=== PATIENT | female | born 1930 | race Caucasian/White ===

== ENCOUNTER 2017-12-01 12:24 | Inpatient (IN) | payer MEDICARE ==
--- NOTE | 2017-12-01 15:40 | PDOC.EVN ---
Event Note - Event Note Event Note: pt is seen and examined in ER, order written and plan explained to pt, H & P will be dictated later for more details
--- NOTE | 2017-12-01 16:25 | RAD ---
CHEST ONE VIEW: HISTORY: An 87-year-old female with a history of congestive heart failure, cellulitis, and fluid overload. FINDINGS: Minimal cardiomegaly. Blunting of the costophrenic angle, suggesting small pleural effusions, with s ome mild bilateral vascular congestion. Atherosclerosis of the aorta. IMPRESSION: Minimal cardiomegaly with mild bilateral vascular congestion and probable small pleural effusions. N o confluent pneumonia. Possible mild interstitial edema. Continue short-term followup. POS: JARETT
[2017-12-01] MEDS ORDERED: Acetaminophen 325 MG TAB PO PRN (17:51)
[2017-12-01] MEDS ORDERED: Artificial Tears 18 DROP/0.9 ML EA EYE PRN (17:51)
[2017-12-01] MEDS ORDERED: Ondansetron HCl/PF 4 MG/2 ML Vial IVP PRN (17:51)
[2017-12-01] MEDS ORDERED: HumaLOG 300 UNITS/3 ML VIAL SC PRN (17:51)
[2017-12-01] MEDS ORDERED: Ondansetron ODT 4 MG TAB PO PRN (17:51)
[2017-12-01] MEDS ORDERED: VANCOMYCIN IVPB PRN (17:51)
[2017-12-01] MEDS ORDERED: Hydrocerin (Eucerin) Cream 120 gm Jar TOP PRN (17:51)
[2017-12-01] MEDS ORDERED: Milk Of Magnesia 30 ML UDCUP PO PRN (17:51)
[2017-12-01] MEDS ORDERED: hydrALAZINE 20 MG/ML VIAL SLOW IVP PRN (17:51)
[2017-12-01] MEDS ORDERED: Zolpidem Tartrate 5 MG TAB PO PRN (17:51)
[2017-12-01] MEDS ORDERED: Mag-Al 1200 mg/1200 mg/30 ML UDCUP PO PRN (17:51)
[2017-12-01] MEDS ORDERED: Dextrose 5% in Water 1,000 ML IV PRN (17:51)
[2017-12-01] MEDS ORDERED: HYDROcodone/Acetaminophen 5/325 mg Tablet PO PRN (17:51)
[2017-12-01] MEDS ORDERED: Senokot 8.6 MG TAB PO PRN (17:51)
[2017-12-01] MEDS ORDERED: Sodium Chloride 0.65% Nasal 44 ML BOT EA NARE PRN (17:51)
[2017-12-01] MEDS ORDERED: Chloraseptic Spray 180 ml Bottle PO PRN (17:51)
[2017-12-01] MEDS ORDERED: Nitroglycerin 0.4 MG TAB (25 Tab Bottle) SL PRN (17:51)
[2017-12-01] MEDS ORDERED: Loratadine 10 MG TAB PO PRN (17:51)
[2017-12-01] MEDS ORDERED: Dextrose 50% Abboject 50 ML SYRINGE SLOW IVP PRN (17:51)
[2017-12-01] MEDS ORDERED: Diabetic Tussin 200 MG/10 ML UDCUP PO PRN (17:51)
[2017-12-01] MEDS ORDERED: Loperamide HCl 2 MG CAP PO PRN (17:51)
[2017-12-01 18:42] LABS: CKMB 2.3 ng/mL (0-6.6); Troponin I 0.032 ng/mL (< 0.028)
[2017-12-01] MEDS ORDERED: metFORMIN 500 MG TAB PO SCH (19:45)
--- NOTE | 2017-12-01 20:05 | HP ---
PRIMARY CARE PHYSICIAN: Dr. Acevedo. REASON FOR ADMISSION: Transfer from [place] [facility] for right lower extremity cellulitis and congestive heart failure exacerbation. HISTORY OF PRESENT ILLNESS: An 87-year-old female who is living at the [facility]. The patient was sent to the [place] [facility] for worsening of her right lower extremity cellulitis and edema. Currently, the patient is accompanied by family member. Family member reports that she has a history of congestive heart failure and she is following Dr. Bell as an outpatient basis. The patient had injury over right lower extremity with some skin tear. Subsequently, the patient was having mild erythema. As per patient's family member, the patient had ultrasound done which was negative for any DVT and the patient was treated with SCDs at the skilled nursing. The patient' s edema was getting worse and erythema was getting worse and the patient was having a lot of pain in her right lower extremity and that is why family member was notified and the patient was sent to emergency room. The patient was also having increasing shortness of breath, increasing edema both lower extremities, but more on the right side. She does not have any orthopnea or PND. She denies any fever or chills. She denies any UTI symptoms. She denies any constipation, diarrhea, melena or hematochezia. The patient has underlying history of diabetes. The patient reported that there was no antibiotic prescription given for recent cellulitis. This patient was evaluated at local emergency room in [place] and she had ultrasound was done , which was negative for any DVT. The patient had a significantly elevated BNP. The patient was transferred to our emergency room for further evaluation and treatment. No family member reports that all record in our hospital system, but I could not find any more report regarding cardiac etiology, though patient is following Dr. Bell as an outpatient basis. ALLERGIES: No known drug allergy. CURRENT HOME MEDICATIONS: Robitussin 800 mg p.o. daily, digoxin 125 mcg p.o. daily, glimepiride 3 mg twice daily, metformin 1000 mg twice daily, magnesium oxide 400 mg p.o. b.i.d., Norvasc 5 mg p.o. daily, multivitamin 1 tablet p.o. daily, Lipitor 10 mg p.o. daily, Diovan 160 mg p.o. daily, Synthroid 50 mcg p.o. daily, Mobic 7.5 mg p.o. daily, Coreg 6.25 mg twice daily, Pro-Stat 30 mL p.o. daily, Tylenol p.r.n. basis, Zofran p.r.n. basis. PAST MEDICAL HISTORY: Congestive heart failure, paroxysmal atrial fibrillation , diabetes type 2, hypothyroidism, dyslipidemia, history of CVA with the right- sided weakness, dementia, and COPD. PAST SURGICAL HISTORY: Vein graft. PAST PSYCHIATRIC HISTORY: Anxiety and depression. SOCIAL HISTORY: The patient lives at [facility]. No history of tobacco, alcohol or illicit drug abuse. She has FULL CODE status. The patient's son is surrogate decision maker. FAMILY HISTORY: No strong family history of premature CAD, CVA or cancer. CODE STATUS: The patient is FULL CODE at the skilled nursing and the patient's son is surrogate decision maker. REVIEW OF SYSTEMS: The following complete review of systems was negative, unless otherwise mentioned in the HPI or below: Constitutional: Weight loss or gain, ability to conduct usual activities. Skin: Rash, itching. Eyes: Double vision, pain. ENT/Mouth: Nose bleeding, neck stiffness, pain, tenderness. Cardiovascular: Palpitations, dyspnea on exertion, orthopnea. Respiratory: Shortness of breath, wheezing, cough, hemoptysis, fever or night sweats. Gastrointestinal: Poor appetite, abdominal pain, heartburn, nausea, vomiting, constipation, or diarrhea. Genitourinary: Urgency, frequency, dysuria, nocturia. Musculoskeletal: Pain, swelling. Neurologic/Psychiatric: Anxiety, depression. Allergy/Immunologic: Skin rash, bleeding tendency. All review of systems reviewed with the patient and negative except as mentioned in the HPI. EMERGENCY ROOM COURSE: The patient was given IM 250 mL fluid and Rocephin 1 gram and [place] one tablet at [place] [facility]. PHYSICAL EXAMINATION: VITAL SIGNS: In our emergency room, blood pressure 168/65, pulse 66, respiratory rate 18, temperature 98.1, saturation 96% on 2 liters oxygen, weight 53.5 kilograms. GENERAL: The patient is currently alert, awake, hypertensive, no obvious acute distress. HEAD: Normocephalic, atraumatic. EYES: Pupils round, reactive to light. Extraocular muscle intact. ENT: Oropharynx within normal limits. Moist mucous membranes. No oral lesion , no pharyngeal erythema, no exudate. NECK: Supple, no JVD, no thyromegaly, no carotid bruit. LUNGS: Bibasilar rales noted. Air entry reduced. CARDIAC: S1, S2 appears regular. No gross murmur noted. No gallop. No rub. ABDOMEN: Soft, bowel sounds present, nontender, nondistended. No organomegaly , no mass, no suprapubic tenderness. BACK: Unremarkable, no CVA tenderness. EXTREMITIES: Upper extremity: Passive movements of all joints are normal. Lower extremities: Bilateral lower extremity pitting edema. Right lower extremity is erythematous, tender and swollen. The patient does have wound which is covered with a dressing. Good distal pulsation. SKIN: No skin rash other than cellulitis of right lower extremity. NEUROLOGIC: Grossly nonfocal examination. She moves all 4 limbs. Plantar bilateral flexor. SIGNIFICANT LABORATORY DATA: CBC: WBC 13.2, hemoglobin 11.2, platelet 270 with a left shift. BMP: Sodium 142, potassium 4.6, chloride 100, carbon dioxide 31, anion gap 16, BUN 77, creatinine 1.41, glucose 134, calcium 10.4. LFT: AST 26, ALT 29, alkaline phosphatase 102, albumin 3.9. BNP 2379, CK-MB 2.5, troponin I 0.018. Chest x-ray based on my review, cardiomegaly, mild pulmonary vascular congestion, mild interstitial edema. Ultrasound negative for DVT. ASSESSMENT AND PLAN: 1. Acute on chronic congestive heart failure suspecting systolic heart failure. We will obtain echocardiography for confirmation of systolic or diastolic heart failure. Meanwhile, we will continue with Lasix 40 mg IV b.i.d. , magnesium oxide 400 mg p.o. b.i.d. We will monitor daily weight and input and output chart, fluid restriction 1500 mL per day. We will also rule out acute coronary syndrome with serial cardiac enzymes. We will check digoxin level, magnesium level, uric acid tomorrow. We will monitor daily weight and input output chart. We will replace electrolytes as needed basis. We will monitor clinically on telemetry floor. 2. Right lower extremity cellulitis precipitated by recent skin tear. The patient has clinical evidence of cellulitis on the right lower extremity. The patient will be treated with Rocephin 2 gram IV daily and vancomycin to cover Staph infection. Vancomycin dose will be adjusted by pharmacy. We will give her probiotics, Florastor 250 mg p.o. daily. Her pain will be controlled with pain medication. The patient is advised to keep her lower extremities elevated. 3. Hypertension. As patient has a suspected systolic congestive heart failure , we will also continue Coreg 6.25 mg p.o. b.i.d., Diovan 160 mg p.o. daily along with amlodipine 5 mg p.o. daily and we will titrate blood pressure medication. 4. Dyslipidemia. Continue Lipitor 10 mg p.o. at bedtime. 5. History of atrial fibrillation. Continue digoxin 125 mcg p.o. daily along with aspirin 81 mg p.o. daily, Coreg 6.25 mg p.o. b.i.d. 6. Hypothyroidism. Continue Synthroid 650 mcg p.o. daily and check TSH tomorrow. 7. Diabetes type 2. We will continue glimepiride 2-3 mg twice daily, metformin 1000 mg p.o. b.i.d. along with insulin as per sliding scale per protocol. Diabetic diet will be given. 8. Chronic kidney disease stage 3. We will monitor renal function and avoid nephrotoxin agent. 9. Anemia, normocytic, normochromic, nutritional supplement will be given. 10. Deep venous thrombosis prophylaxis. Lovenox 40 mg subcu daily. 11. Gastrointestinal prophylaxis, Pepcid 20 mg p.o. b.i.d. CODE STATUS: Patient is FULL CODE. Patient's son is surrogate decision maker. Disposition plan based on clinical course. We are expecting patient's stay in hospital more than 2 midnights. Plan of care discussed with the patient and family member at bedside in the emergency room. VEENA
[2017-12-01] MEDS ORDERED: Vancomycin HCl 1 GM in Premix Bag 1 BAG IVPB SCH (21:00)
[2017-12-01] MEDS: Famotidine 20 MG TAB PO SCH (21:27)
[2017-12-01] MEDS: Atorvastatin Calcium 10 MG TAB PO SCH (21:27)
[2017-12-01] MEDS: Magnesium Oxide 400 MG TAB PO SCH (21:27)
[2017-12-01] MEDS: Carvedilol 6.25 MG TAB PO SCH (21:27)
[2017-12-01] MEDS: cefTRIAXone\\ROCEPHIN 2 GM in Sodium Chloride 0.9% 100 ML IVPB SCH (21:28)
[2017-12-01 21:51] LABS: CKMB 2.4 ng/mL (0-6.6); Troponin I 0.041 ng/mL (< 0.028)
[2017-12-02 05:05] LABS: #Basophils 0.1 thou/uL (0.0-0.2); #Eosinphils 0.2 thou/uL (0.0-0.7); #Lymphocytes 0.9 thou/uL (1.20-3.40); #Monocytes 1.1 thou/uL (0.11-0.59); #Neutrophils 8.2 thou/uL (1.40-6.50); %Basophils 0.5 % (0.0-1.0); %Eosinophils 2.3 % (0.0-10.0); %Lymphocytes 8.9 % (21.0-51.0); %Monocytes 10.1 % (0.0-10.0); %Neutrophils 78.1 % (42.0-75.0); Mean Corpuscular HGB CONC 32.9 g/dL (32.0-36.0); Mean Corpuscular Hemoglobin 29.7 pg (27.0-31.0); Mean Corpuscular Volume 90.1 fl (81.0-99.0); Mean Platelet Volume 9.4 fL (7.4-10.4); Platelet Count 215 thou/uL (130-400); RBC Distribution Width 14.9 % (11.5-14.5); Red Blood Cell (RBC) Count 3.38 mill/uL (4.20-5.40); White Blood Cell (WBC) Count 10.4 thou/uL (4.8-10.8)
[2017-12-02] MEDS: Levothyroxine Sodium 50 MCG TAB PO SCH (05:23)
[2017-12-02] MEDS: Furosemide 40 MG/4 ML VIAL SLOW IVP SCH ×2 (05:24→13:57)
[2017-12-02 05:46] LABS: ALT (SGPT) 23 U/L (8-55); AST (SGOT) 23 U/L (5-34); Albumin 3.4 g/dL (3.4-4.8); Alkaline Phosphatase 90 U/L (40-150); Anion Gap 13 mmol/L (10-20); BUN (Urea Nitrogen) 68 mg/dL (9.8-20.1); Bilirubin, Total 0.7 mg/dL (0.2-1.2); Calc. Creatinine Clearance 30 mL/min (70-130); Calcium 9.6 mg/dL (7.8-10.44); Carbon Dioxide 30 mmol/L (23-31); Chloride 103 mmol/L (98-107); Estimated GFR-MDRD 43; Globulin 3.4 g/dL (2.4-3.5); Glucose 61 mg/dL (83-110); Potassium 4.1 mmol/L (3.5-5.1); Protein, Total 6.8 g/dL (6.0-8.3); Sodium 142 mmol/L (136-145); Uric Acid 11.7 mg/dL (2.6-6.0)
[2017-12-02 06:11] LABS: Digoxin 1.31 ng/mL (0.8-2.0)
[2017-12-02 07:18] LABS: Bilirubin Negative (Negative); Blood, Urine Negative (Negative); Clarity CLOUDY (Clear); Glucose, Urine (Dipstick) Negative (Negative); Leukocyte Negative (Negative); Nitrite Negative (Negative); Protein, Urine (Dipstick) Negative (Neg-Trace); Specific Gravity, Urine 1.014 (1.002-1.036)
[2017-12-02 07:51] LABS: RBC/HPF 0-3 HPF (0-3); WBC/HPF 0-3 HPF (0-3)
[2017-12-02 07:52] LABS: Bacteria/HPF Rare-Few HPF (None Seen); Hyaline Casts/LPF 0-3 HYALINE CAST LPF (0-3 Hyaline); Renal Epithelial 0-3 HPF (0-3)
[2017-12-02] MEDS: Multivitamin W/ Minerals 1 TAB PO SCH (08:43)
[2017-12-02] MEDS: Saccharomyces boulardii 250 MG CAP PO SCH (08:43)
[2017-12-02] MEDS: Magnesium Oxide 400 MG TAB PO SCH ×2 (08:43→20:37)
[2017-12-02] MEDS: Digoxin 0.125 MG TAB PO SCH (08:43)
[2017-12-02] MEDS: Amlodipine 5 MG TAB PO SCH (08:44)
[2017-12-02] MEDS: Carvedilol 6.25 MG TAB PO SCH ×2 (08:44→20:38)
[2017-12-02] MEDS: Valsartan 80 MG TAB PO SCH (08:44)
[2017-12-02] MEDS: Enoxaparin Sodium 30 MG/0.3 ML SYRINGE SC SCH (08:45)
[2017-12-02] MEDS ORDERED: Prevnar 13-Val Conj/PF 0.5 ML SYRINGE IM ONE (09:00)
--- NOTE | 2017-12-02 09:40 | PDOC.PN ---
- Subjective Encounter Start Date: 12/02/17 Encounter Start Time: 09:38 Ms. Denise was seen today in follow-up of cellulitis of the leg. She does not have any complaints when asked, but admits to some dyspnea when she woke up this morning. she denies any pain in her leg. - Objective Resuscitation Status: Resuscitation Status FULL:Full Resuscitation MAR Reviewed: Yes Vital Signs & Weight: Vital Signs (12 hours) Temp Pulse Resp BP BP Pulse Ox 12/02/17 08:44 67 183/73 H 12/02/17 08:43 67 12/02/17 04:00 98.5 F 67 20 165/70 H 97 Weight Admit Weight 121 lb 8 oz Weight 124 lb Result Diagrams: 12/02/17 04:32 12/02/17 04:32 Additional Labs: Accuchecks 12/01/17 21:17 POC Glucose 111 H Phys Exam - Physical Examination HEENT: PERRLA, sclera anicteric Respiratory: no wheezing, no rales, no rhonchi, clear to auscultation bilateral Cardiovascular: RRR, no rub 3/6 systolic murmur Gastrointestinal: soft, non-tender, no distention, positive bowel sounds Musculoskeletal: edema present 2-3 + pitting edema, mild erythema in the left lower extremity, mild warmth Dx/Plan (1) Cellulitis of left leg Code(s): L03.116 - CELLULITIS OF LEFT LOWER LIMB Status: Acute (2) Acute on chronic diastolic heart failure Code(s): I50.33 - ACUTE ON CHRONIC DIASTOLIC (CONGESTIVE) HEART FAILURE Status : Acute (3) Diabetes mellitus type 2 in nonobese Code(s): E11.9 - TYPE 2 DIABETES MELLITUS WITHOUT COMPLICATIONS Status: Chronic (4) Hypertension Code(s): I10 - ESSENTIAL (PRIMARY) HYPERTENSION Status: Chronic (5) Hypothyroidism Code(s): E03.9 - HYPOTHYROIDISM, UNSPECIFIED Status: Chronic (6) CVA (cerebral vascular accident) Code(s): I63.9 - CEREBRAL INFARCTION, UNSPECIFIED Status: Chronic - Plan * Cellulitis- continue Rocephin and Vancomycin, and follow clinically * DM- blood glucose is stable * HTN- blood pressure is slightly elevated, but will monitor while she is being diuresed, may need to adjust medications if trend continues. * Hypothyroidism- stable * Acute on chronic diastolic heart failure- continue Lasix IV- await Echo to assess LV function- monitor electrolytes
[2017-12-02] MEDS: metFORMIN 500 MG TAB PO SCH ×2 (10:26→17:34)
[2017-12-02] MEDS: Glimepiride 1 MG TAB PO SCH ×2 (10:27→17:33)
--- NOTE | 2017-12-02 13:44 | PQF ---
CLINICAL DOCUMENTATION IMPROVEMENT CLARIFICATION FORM: ICD-10 Updated PLEASE DO AN ADDENDUM TO THE PROGRESS NOTE WITH ANY DOCUMENTATION UPDATES OR ADDITIONS AND CARRY THROUGH TO DC SUMMARY. THANK YOU. DATE: 12/02 ATTN: DR. FRANTZ LOPEZ Please exercise your independent, professional judgment in responding to the clarification form. Clinical indicators are provided on the bottom of this form for your review Please check appropriate box(s): ____X___ I (concur) with the Wound Care findings as stated below. [ ] Pressure Ulcer: (Stage I: Erythema; Stage II: Partial thickness; Stage III : Full thickness; Stage IV: Necrosis to muscle/bone) [ ] Location: POA: [ ] Yes [ ] No [ ] Unable to determine Stage (I to IV): (Left Right Bilateral N/A ) [ ] Location: POA: [ ] Yes [ ] No [ ] Unable to determine Stage (I to IV): (Left Right Bilateral N/A ) [ ] Other diagnosis [ ] Unable to determine In addition, please specify: Present on Admission (POA): [X ] Yes [ ] No [ ] Unable to determine For continuity of documentation, please document condition throughout progress notes and discharge summary. Thank You. CLINICAL INDICATORS - SIGNS / SYMPTOMS / LABS WOUND CARE CONSULT DOCUMENTATION 12/02: RIGHT CALF PRESSURE ULCER STAGE III RISK FACTORS: CELLULITIS RLE DM II R HEMIPLEGIA TREATMENTS: WOUND CARE CONSULT W/TREATMENT EVERY 3RD DAY THANK YOU! Nelda (This form is maintained as a part of the permanent medical record) 2014 [employer] All Rights Reserved Nelda Santana RN, BSN [email or web address] Office: [phone] [facility]
[2017-12-02] MEDS: Atorvastatin Calcium 10 MG TAB PO SCH (20:38)
[2017-12-02] MEDS: Famotidine 20 MG TAB PO SCH (20:38)
[2017-12-02] MEDS: cefTRIAXone\\ROCEPHIN 2 GM in Sodium Chloride 0.9% 100 ML IVPB SCH (20:38)
[2017-12-02 21:35] LABS: Vancomycin, Random 15.5 ug/mL (See Comment)
[2017-12-03] MEDS: Carvedilol 6.25 MG TAB PO SCH (03:47)
[2017-12-03 05:58] LABS: #Basophils 0.1 thou/uL (0.0-0.2); #Eosinphils 0.1 thou/uL (0.0-0.7); #Lymphocytes 1.1 thou/uL (1.20-3.40); #Monocytes 1.3 thou/uL (0.11-0.59); #Neutrophils 10.1 thou/uL (1.40-6.50); %Basophils 0.4 % (0.0-1.0); %Eosinophils 0.9 % (0.0-10.0); %Lymphocytes 8.5 % (21.0-51.0); %Monocytes 10.4 % (0.0-10.0); %Neutrophils 79.7 % (42.0-75.0); Hemoglobin 10.7 g/dL (12.0-16.0); Mean Corpuscular Hemoglobin 28.4 pg (27.0-31.0); Mean Corpuscular Volume 88.7 fl (81.0-99.0); Platelet Count 273 thou/uL (130-400); RBC Distribution Width 15.1 % (11.5-14.5); Red Blood Cell (RBC) Count 3.77 mill/uL (4.20-5.40); White Blood Cell (WBC) Count 12.7 thou/uL (4.8-10.8)
[2017-12-03] MEDS: Furosemide 40 MG/4 ML VIAL SLOW IVP SCH ×2 (06:00→14:54)
[2017-12-03] MEDS ORDERED: Vancomycin HCl 500 MG in Sodium Chloride 0.9% 100 ML IVPB SCH (06:00)
[2017-12-03] MEDS: Levothyroxine Sodium 50 MCG TAB PO SCH (06:00)
[2017-12-03 06:27] LABS: Anion Gap 16 mmol/L (10-20); BUN (Urea Nitrogen) 57 mg/dL (9.8-20.1); Calc. Creatinine Clearance 27 mL/min (70-130); Calcium 9.3 mg/dL (7.8-10.44); Carbon Dioxide 28 mmol/L (23-31); Chloride 101 mmol/L (98-107); Estimated GFR-MDRD 38; Glucose 88 mg/dL (83-110); Sodium 141 mmol/L (136-145)
[2017-12-03] MEDS: Glimepiride 1 MG TAB PO SCH ×2 (08:45→17:17)
[2017-12-03] MEDS: metFORMIN 500 MG TAB PO SCH (08:46)
[2017-12-03] MEDS: Digoxin 0.125 MG TAB PO SCH (08:46)
[2017-12-03] MEDS: Enoxaparin Sodium 30 MG/0.3 ML SYRINGE SC SCH (08:46)
[2017-12-03] MEDS: Valsartan 80 MG TAB PO SCH (08:46)
[2017-12-03] MEDS: Multivitamin W/ Minerals 1 TAB PO SCH (08:47)
[2017-12-03] MEDS: Amlodipine 5 MG TAB PO SCH (08:47)
[2017-12-03] MEDS: Magnesium Oxide 400 MG TAB PO SCH ×2 (08:47→21:23)
[2017-12-03] MEDS: Saccharomyces boulardii 250 MG CAP PO SCH (08:47)
[2017-12-03] MEDS ORDERED: Carvedilol 6.25 MG TAB PO SCH (09:00)
--- NOTE | 2017-12-03 09:43 | PDOC.PN ---
- Subjective Encounter Start Date: 12/03/17 Encounter Start Time: 09:42 Ms. Denise was seen today in follow-up of cellulitis, and CHF exacerbation. She does not have any complaints. She denies leg pain, and denies feeling short of breath. - Objective Resuscitation Status: Resuscitation Status FULL:Full Resuscitation MAR Reviewed: Yes Vital Signs & Weight: Vital Signs (12 hours) Temp Pulse Resp BP BP BP Pulse Ox 12/03/17 08:47 75 179/78 H 12/03/17 08:46 75 12/03/17 07:20 98.5 F 69 16 179/78 H 93 L 12/03/17 04:00 97.5 F L 55 L 18 140/63 93 L 12/03/17 03:47 163/70 H 12/03/17 00:00 97.9 F 65 18 132/68 93 L Weight Admit Weight 121 lb 8 oz Weight 119 lb 11.2 oz I&O: 12/02/17 12/03/17 12/04/17 06:59 06:59 06:59 Intake Total 400 Output Total 400 Balance 0 Result Diagrams: 12/03/17 05:23 12/03/17 05:23 Additional Labs: Accuchecks 12/03/17 12/02/17 12/02/17 05:44 21:17 16:39 POC Glucose 90 156 H 186 H 12/02/17 12/02/17 13:57 06:25 POC Glucose 130 H 72 Phys Exam - Physical Examination HEENT: PERRLA Respiratory: no wheezing, no rales, no rhonchi, clear to auscultation bilateral Cardiovascular: RRR 2/6 systolic murmur Gastrointestinal: soft, non-tender, no distention, positive bowel sounds Musculoskeletal: edema present 2+ pitting edema bilaterally with left> right + erythema mildly improved from yesterday Neurological: non-focal Dx/Plan (1) Cellulitis of left leg Code(s): L03.116 - CELLULITIS OF LEFT LOWER LIMB Status: Acute (2) Acute on chronic diastolic heart failure Code(s): I50.33 - ACUTE ON CHRONIC DIASTOLIC (CONGESTIVE) HEART FAILURE Status : Acute (3) Diabetes mellitus type 2 in nonobese Code(s): E11.9 - TYPE 2 DIABETES MELLITUS WITHOUT COMPLICATIONS Status: Chronic (4) Hypertension Code(s): I10 - ESSENTIAL (PRIMARY) HYPERTENSION Status: Chronic (5) Hypothyroidism Code(s): E03.9 - HYPOTHYROIDISM, UNSPECIFIED Status: Chronic (6) CVA (cerebral vascular accident) Code(s): I63.9 - CEREBRAL INFARCTION, UNSPECIFIED Status: Chronic (7) Chronic kidney disease, stage 3 (moderate) Code(s): N18.3 - CHRONIC KIDNEY DISEASE, STAGE 3 (MODERATE) Status: Acute - Plan * Cellulitis of the Left Leg- will continue Rocephin IV clinically it is improved * Acute on chronic heart failure- continue Lasix IV- will add Hydralazine for better BP control * Still awaiting Echo to assess LV function * DM- blood glucose is stable- will discontinue Metformin as her GFR is too low for this medication * HTN- again will add Hydralazine. * Monitor electrolytes and renal function
[2017-12-03] MEDS: hydrALAZINE 25 MG TAB PO SCH ×2 (14:54→21:23)
[2017-12-03] MEDS: cefTRIAXone\\ROCEPHIN 2 GM in Sodium Chloride 0.9% 100 ML IVPB SCH (21:22)
[2017-12-03] MEDS: Atorvastatin Calcium 10 MG TAB PO SCH (21:23)
[2017-12-03] MEDS: Famotidine 20 MG TAB PO SCH (21:24)
[2017-12-04] MEDS: Levothyroxine Sodium 50 MCG TAB PO SCH (05:27)
[2017-12-04] MEDS: Furosemide 40 MG/4 ML VIAL SLOW IVP SCH ×2 (05:27→14:02)
[2017-12-04 05:40] LABS: #Eosinphils 0.3 thou/uL (0.0-0.7); #Lymphocytes 1.2 thou/uL (1.20-3.40); #Monocytes 1.3 thou/uL (0.11-0.59); #Neutrophils 9.5 thou/uL (1.40-6.50); %Basophils 0.4 % (0.0-1.0); %Eosinophils 2.6 % (0.0-10.0); %Lymphocytes 9.6 % (21.0-51.0); %Monocytes 10.6 % (0.0-10.0); %Neutrophils 76.8 % (42.0-75.0); Hemoglobin 10.3 g/dL (12.0-16.0); Mean Corpuscular HGB CONC 32.5 g/dL (32.0-36.0); Mean Corpuscular Hemoglobin 28.8 pg (27.0-31.0); Mean Corpuscular Volume 88.7 fl (81.0-99.0); Mean Platelet Volume 8.4 fL (7.4-10.4); Platelet Count 267 thou/uL (130-400); RBC Distribution Width 15.3 % (11.5-14.5); Red Blood Cell (RBC) Count 3.59 mill/uL (4.20-5.40); White Blood Cell (WBC) Count 12.4 thou/uL (4.8-10.8)
[2017-12-04 05:50] LABS: Anion Gap 14 mmol/L (10-20); BUN (Urea Nitrogen) 50 mg/dL (9.8-20.1); Calc. Creatinine Clearance 28 mL/min (70-130); Calcium 9.3 mg/dL (7.8-10.44); Carbon Dioxide 33 mmol/L (23-31); Chloride 103 mmol/L (98-107); Estimated GFR-MDRD 41; Glucose 64 mg/dL (83-110); Potassium 3.6 mmol/L (3.5-5.1); Sodium 146 mmol/L (136-145); Vancomycin, Random 11.6 ug/mL (See Comment)
[2017-12-04] MEDS ORDERED: Vancomycin HCl 500 MG in Sodium Chloride 0.9% 100 ML IVPB SCH (07:00)
[2017-12-04] MEDS: Glimepiride 1 MG TAB PO SCH ×2 (08:20→16:49)
[2017-12-04] MEDS: Enoxaparin Sodium 30 MG/0.3 ML SYRINGE SC SCH (08:21)
[2017-12-04] MEDS: hydrALAZINE 25 MG TAB PO SCH ×3 (08:21→20:28)
[2017-12-04] MEDS: Multivitamin W/ Minerals 1 TAB PO SCH (08:21)
[2017-12-04] MEDS: Valsartan 80 MG TAB PO SCH (08:21)
[2017-12-04] MEDS: Digoxin 0.125 MG TAB PO SCH (08:21)
[2017-12-04] MEDS: Amlodipine 5 MG TAB PO SCH (08:21)
[2017-12-04] MEDS: Saccharomyces boulardii 250 MG CAP PO SCH (08:21)
[2017-12-04] MEDS: Magnesium Oxide 400 MG TAB PO SCH ×2 (08:21→20:28)
--- NOTE | 2017-12-04 11:10 | PDOC.PN ---
- Subjective Encounter Start Date: 12/04/17 Encounter Start Time: 11:08 Ms. Denise was seen today in follow-up. She does not have any complaints. She denies chest pain or difficulty breathing - Objective Resuscitation Status: Resuscitation Status FULL:Full Resuscitation MAR Reviewed: Yes Vital Signs & Weight: Vital Signs (12 hours) Temp Pulse Resp BP BP BP Pulse Ox 12/04/17 08:21 64 12/04/17 08:00 98.4 F 64 18 96 12/04/17 07:47 98.4 F 64 18 147/69 H 96 12/04/17 04:22 98.9 F 54 L 18 152/67 H 93 L 12/04/17 00:26 97.9 F 69 131/70 93 L Weight Admit Weight 121 lb 8 oz Weight 120 lb 8 oz I&O: 12/03/17 12/04/17 12/05/17 06:59 06:59 06:59 Intake Total 400 300 Output Total 400 Balance 0 300 Result Diagrams: 12/04/17 05:17 12/04/17 05:17 Additional Labs: Accuchecks 12/04/17 12/03/17 12/03/17 05:50 21:19 16:03 POC Glucose 74 182 H 69 L 12/03/17 10:53 POC Glucose 86 Phys Exam - Physical Examination HEENT: PERRLA Respiratory: no wheezing, no rales, no rhonchi, clear to auscultation bilateral Cardiovascular: RRR, no significant murmur, no rub Gastrointestinal: soft, non-tender, positive bowel sounds Musculoskeletal: edema present + Lower extremity edema has improved, erythema, also has improved, but is still present, mild warmth Dx/Plan (1) Aortic stenosis, severe Code(s): I35.0 - NONRHEUMATIC AORTIC (VALVE) STENOSIS Status: Acute (2) Cellulitis of left leg Code(s): L03.116 - CELLULITIS OF LEFT LOWER LIMB Status: Acute (3) Acute on chronic diastolic heart failure Code(s): I50.33 - ACUTE ON CHRONIC DIASTOLIC (CONGESTIVE) HEART FAILURE Status : Acute (4) Diabetes mellitus type 2 in nonobese Code(s): E11.9 - TYPE 2 DIABETES MELLITUS WITHOUT COMPLICATIONS Status: Chronic (5) Hypertension Code(s): I10 - ESSENTIAL (PRIMARY) HYPERTENSION Status: Chronic (6) Hypothyroidism Code(s): E03.9 - HYPOTHYROIDISM, UNSPECIFIED Status: Chronic (7) CVA (cerebral vascular accident) Code(s): I63.9 - CEREBRAL INFARCTION, UNSPECIFIED Status: Chronic (8) Chronic kidney disease, stage 3 (moderate) Code(s): N18.3 - CHRONIC KIDNEY DISEASE, STAGE 3 (MODERATE) Status: Acute (9) Pulmonary hypertension Code(s): I27.20 - PULMONARY HYPERTENSION, UNSPECIFIED Status: Acute - 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 I spoke with Dr. Acevedo to clarify why she is not on anticoagulation. She was taken off coumadin to have a dental procedure. She had a significant amount of bleeding following that dental procedure once coumadin was re-started. She asked to be taken off. She was afraid to re-start coumadin thereafter, as well as her family, and has refused to take it since. ( Therefor Patient Preference) * Cellulitis- clinically improving with Rocephin * HTN- blood pressure has been stable * DM- blood glucose is stable
--- NOTE | 2017-12-04 13:32 | CON ---
DATE OF CONSULTATION: 12/04/2017 INDICATION FOR CONSULTATION: An 87-year-old female who was admitted with right lower extremity cellu litis and edema. The patient was found by echocardiogram to have diastolic dysfunction, diastolic he art failure as well as severe aortic valve stenosis and severe pulmonary hypertension. We were asked to see her due to various cardiac problems. At this time, the patient has obviously some dementia. She does answer some questions appropriately, but I am uncertain as if she has a full understanding of her overall medical problems. She denies a ny chest pain or shortness of breath and mainly says that her leg was swollen and that she had some d iscomfort in the leg with the cellulitis. PAST MEDICAL HISTORY: Significant for paroxysmal atrial fibrillation. She has anxiety, depression, history of diabetes, history of hypertension, dyslipidemia, hypothyroidism, type 2 diabetes, chronic kidney disease. She has history of anemia. She has had a CVA in the past, has right hemiparesis. S he has obvious dementia. She has had a history of what appears to be some type of peripheral vascula r disease involving the right lower extremity. She may have had some type of bypass grafting. There is an incision on the right medial aspect of the lower leg. Otherwise, I do not know any other sign ificant past medical history. SOCIAL HISTORY: She resides in a [facility]. She has no alcohol or tobacco abuse. FAMILY HISTORY: Noncontributory at her age. ALLERGIES: There are no known drug allergies. MEDICATIONS PRIOR TO ADMISSION: Included Tylenol, Zofran, Pro-Stat, Coreg, Mobic, Synthroid, Diovan, atorvastatin, multivitamins, Norvasc, magnesium, metformin, glimepiride, digoxin and guaifenesin. REVIEW OF SYSTEMS: Difficult to obtain, but she denied any GI or complaints. She had no nausea, vomiting or diarrhea. She had no complaints from a pulmonary standpoint. She denied shortness of br eath or dyspnea on exertion. She also denied any significant cardiac complaints such as chest pain o r palpitations, dizziness or lightheadedness. She mainly complains of the pain and discomfort in the right lower extremity. PHYSICAL EXAMINATION: GENERAL: Reveals an elderly female. Obviously she has some dementia. VITAL SIGNS: Blood pressure 145/63, heart rate is 71 and irregular. She is afebrile, respiratory ra te 16. HEENT: Reveals the head to be normocephalic and atraumatic. Carotid pulses are present. There is r adiation from the aortic area up into the carotids. I cannot tell if there are any significant carot id bruits. LUNGS: Chest is clear to auscultation. I did not hear any rales, rhonchi or wheezing, but there jorgensen s appear to be decreased breath sounds on the right side, but otherwise there were no rales or rhonch i. There was no wheezing. CARDIOVASCULAR: Reveals an irregular rhythm. She has a harsh systolic murmur in the aortic area whi ch radiates over the entire precordium. There is also a systolic murmur noted at the apex, but this is overshadowed by the significant aortic valve stenosis murmur. ABDOMEN: Soft and nontender. Positive bowel sounds are present. EXTREMITIES: Showed no clubbing or cyanosis. She does have right lower extremity edema. I cannot p alpate the right popliteal pulse, or pedal pulses, I could barely palpate a right femoral pulse. The re appears to be well healed surgical incision around the knee area in the medial aspect of the right lower extremity. The right foot and leg is wrapped in a Kerlix a surgical dressing. SKIN: Warm and dry. NEUROLOGIC: The patient has obvious dementia. EKG shows atrial fibrillation. She occasionally has some significant pauses. Last night she had a 3 .8 second pause associated with atrial fibrillation. She has had no significant tachycardia. She martinez s had other pauses, 2.6 seconds, 3.4 seconds as well as a 3.8 second pause that she had suffered last night. LABORATORY DATA: Shows a BUN of 50 with a creatinine of 1.24, hemoglobin 10.3, WBC of 12.4, blood [place] was 64. There was no evidence of any cardiac enzymes obtained. Her chest x-ray did show evidence of some congestion and also question of small pleural effusions. N o evidence of pneumonia. IMPRESSION: 1. An 87-year-old female with acute on chronic diastolic congestive heart failure which is most like ly exacerbated by her severe aortic valve stenosis as well as pulmonary hypertension. This is a diff icult situation in this 87-year-old female with dementia. It is possible she could undergo a percuta neous aortic valve replacement if so indicated, but this would require also cardiac catheterization a nd may need to undergo if she has coronary artery disease, this would entail further evaluation and p ossible stent placement or bypass surgery. We will discuss this with the family. 2. History of atrial fibrillation with bradycardia. This may be an indication for a pacemaker. She had been on blood thinners in the past, but these were stopped and she is no longer taking medicatio ns. I am uncertain as to whether or not she has suffered a CVA in the past due to atrial fibrillatio n and not taking medications. This will also be left up to the discussion with the family as to whet her or not they wish to proceed with aggressive treatment such as pacemaker insertion and possible ao rtic valve replacement. This makes it again a difficult situation in this lady with what appears to be severe pulmonary hypertension also. 3. Paroxysmal atrial fibrillation, the rate is under good control and actually is bradycardic at ranjit es. She had been on a beta madelaine. We will hold the beta madelaine at this time, perhaps and decide whether or not to use other medications for control of the rhythm, possibly digoxin. However, she do es have chronic kidney disease. This would have to be monitored very carefully. We may be able to t andrew Cornell, may be able to try diltiazem to see if we can control the rate should she become tachycar dic. 4. Diabetes. This will be dealt with by the primary care service. 5. Chronic kidney disease. This also will be dealt with by the primary care service. 6. Chronic anemia. She is stable at this time. We will continue the present medications. 7. History of cerebrovascular accident in the past which most likely was associated with atrial fibr illation. 8. Hypertension. This is under good control at this time, would continue the medicines except we ma y need to discontinue the Coreg and start another medication in order to avoid bradycardia. 9. Peripheral vascular disease. I did not palpate pulses in the right lower extremity. This may be in part the reason that she has had poor healing. 10. Cellulitis of the right lower extremity. This [facility]. We will be more than happy to continue to follow the patient with you; however, will need to have sig nificant discussion with the family as to how they wish to proceed and whether or not to use aggressi ve management or not. If so, then the patient will need to undergo cardiac catheterization for furth er evaluation of the coronary artery status as well as true gradient across the aortic valve and poss ibly also pacemaker insertion.
[2017-12-04 14:04] LABS: Digoxin 1.62 ng/mL (0.8-2.0)
[2017-12-04 14:12] VITALS: BMI 22.7
[2017-12-04] MEDS: cefTRIAXone\\ROCEPHIN 2 GM in Sodium Chloride 0.9% 100 ML IVPB SCH (20:27)
[2017-12-04] MEDS: Atorvastatin Calcium 10 MG TAB PO SCH (20:28)
[2017-12-04] MEDS: Famotidine 20 MG TAB PO SCH (20:28)
[2017-12-05] MEDS: Vancomycin HCl 750 MG in Sodium Chloride 0.9% 250 ML 250 ML IVPB SCH (05:37)
[2017-12-05] MEDS: Levothyroxine Sodium 50 MCG TAB PO SCH (05:37)
[2017-12-05] MEDS: Furosemide 40 MG/4 ML VIAL SLOW IVP SCH ×2 (05:37→14:03)
[2017-12-05] MEDS: hydrALAZINE 25 MG TAB PO SCH ×3 (08:47→20:38)
[2017-12-05] MEDS: Amlodipine 5 MG TAB PO SCH (08:47)
[2017-12-05] MEDS: Magnesium Oxide 400 MG TAB PO SCH ×2 (08:47→20:38)
[2017-12-05] MEDS: Multivitamin W/ Minerals 1 TAB PO SCH (08:47)
[2017-12-05] MEDS: Valsartan 80 MG TAB PO SCH (08:47)
[2017-12-05] MEDS: Saccharomyces boulardii 250 MG CAP PO SCH (08:47)
[2017-12-05] MEDS: Glimepiride 1 MG TAB PO SCH ×2 (08:48→17:18)
[2017-12-05] MEDS: Enoxaparin Sodium 30 MG/0.3 ML SYRINGE SC SCH (08:48)
--- NOTE | 2017-12-05 12:12 | PDOC.PN ---
- Subjective Encounter Start Date: 12/05/17 Encounter Start Time: 12:10 Ms. Denise was seen today in follow-up. She does not have any complaints this morning. She denies leg pain, and has notes that the swelling has improved. - Objective Resuscitation Status: Resuscitation Status FULL:Full Resuscitation MAR Reviewed: Yes Vital Signs & Weight: Vital Signs (12 hours) Temp Pulse Pulse Pulse Resp BP BP 12/05/17 11:12 89 80 194/80 H 175/73 H 12/05/17 08:21 98.1 F 83 17 12/05/17 08:00 98.1 F 83 17 12/05/17 04:00 98.6 F 60 16 BP Pulse Ox 12/05/17 11:12 12/05/17 08:21 174/76 H 92 L 12/05/17 08:00 12/05/17 04:00 138/61 93 L Weight Admit Weight 121 lb 8 oz Weight 112 lb 12.8 oz I&O: 12/04/17 12/05/17 12/06/17 06:59 06:59 06:59 Intake Total 300 1720 Balance 300 1720 Result Diagrams: 12/04/17 05:17 12/04/17 05:17 Additional Labs: Accuchecks 12/05/17 12/05/17 12/04/17 11:42 06:27 20:43 POC Glucose 239 H 220 H 78 12/04/17 12/04/17 16:21 12:03 POC Glucose 80 81 Phys Exam - Physical Examination HEENT: PERRLA Respiratory: no wheezing, no rales, no rhonchi, clear to auscultation bilateral Cardiovascular: RRR, no significant murmur, no rub Gastrointestinal: soft, non-tender, positive bowel sounds Trace edema bilaterally, mild erythema, in the right leg, but improved Dx/Plan (1) Aortic stenosis, severe Code(s): I35.0 - NONRHEUMATIC AORTIC (VALVE) STENOSIS Status: Acute (2) Cellulitis of left leg Code(s): L03.116 - CELLULITIS OF LEFT LOWER LIMB Status: Acute (3) Acute on chronic diastolic heart failure Code(s): I50.33 - ACUTE ON CHRONIC DIASTOLIC (CONGESTIVE) HEART FAILURE Status : Acute (4) Diabetes mellitus type 2 in nonobese Code(s): E11.9 - TYPE 2 DIABETES MELLITUS WITHOUT COMPLICATIONS Status: Chronic (5) Hypertension Code(s): I10 - ESSENTIAL (PRIMARY) HYPERTENSION Status: Chronic (6) Hypothyroidism Code(s): E03.9 - HYPOTHYROIDISM, UNSPECIFIED Status: Chronic (7) CVA (cerebral vascular accident) Code(s): I63.9 - CEREBRAL INFARCTION, UNSPECIFIED Status: Chronic (8) Chronic kidney disease, stage 3 (moderate) Code(s): N18.3 - CHRONIC KIDNEY DISEASE, STAGE 3 (MODERATE) Status: Acute (9) Pulmonary hypertension Code(s): I27.20 - PULMONARY HYPERTENSION, UNSPECIFIED Status: Acute - Plan * Critical - Cardiology input appreciated- discussed with the patient son, and [id number] who are at bedside regarding this. Her filwbpjb-ms-fis tells me that when looking back she may have been symptomatic from the before now, she recalls that the patient had a fainting episode before. They have also discussed this with Dr. Acevedo. They are leaning towards conservative measures with regards to her treatment. They are not interested in a lot of invasive testing, and they tell me that before the patient's dementia had become advanced she had said she wanted to be DNR, and probably would not want a lot of aggressive treatment as well. They may have more questions regarding the pace-maker however. ( discussion lasted 20 minutes) * I have offered to have them speak with the Palliative care team, and they are interested in this * Cellulitis- improving- can likely change to oral antibiotics soon * AFIB-- she has been bradycardic periodically- will defer to Cardiology- will continue without full anticoagulation . * DM- blood glucose is slightly elevated- will monitor * HTN- blood pressure- will await further recommendations from Cardiology before adjusting medications
[2017-12-05] MEDS: HumaLOG 300 UNITS/3 ML VIAL SC PRN (12:58)
[2017-12-05] MEDS: cefTRIAXone\\ROCEPHIN 2 GM in Sodium Chloride 0.9% 100 ML IVPB SCH (20:37)
[2017-12-05] MEDS: Atorvastatin Calcium 10 MG TAB PO SCH (20:38)
[2017-12-05] MEDS: Famotidine 20 MG TAB PO SCH (20:38)
[2017-12-06] MEDS: Levothyroxine Sodium 50 MCG TAB PO SCH (05:06)
[2017-12-06] MEDS: Furosemide 40 MG/4 ML VIAL SLOW IVP SCH ×2 (05:06→14:40)
[2017-12-06] MEDS: Vancomycin HCl 750 MG in Sodium Chloride 0.9% 250 ML 250 ML IVPB SCH (05:06)
[2017-12-06] MEDS: Enoxaparin Sodium 30 MG/0.3 ML SYRINGE SC SCH (08:52)
[2017-12-06] MEDS: Amlodipine 5 MG TAB PO SCH (08:52)
[2017-12-06] MEDS: hydrALAZINE 25 MG TAB PO SCH ×2 (08:52→14:40)
[2017-12-06] MEDS: Valsartan 80 MG TAB PO SCH (08:53)
[2017-12-06] MEDS: Saccharomyces boulardii 250 MG CAP PO SCH (08:53)
[2017-12-06] MEDS: Magnesium Oxide 400 MG TAB PO SCH (08:53)
[2017-12-06] MEDS: Multivitamin W/ Minerals 1 TAB PO SCH (08:53)
[2017-12-06] MEDS: Glimepiride 1 MG TAB PO SCH ×2 (11:41→16:49)
--- NOTE | 2017-12-06 12:09 | PDOC.PN ---
- Subjective Encounter Start Date: 12/06/17 Encounter Start Time: 12:07 Ms. Denise was seen today in follow-up. she does not have any new complaints. - Objective Resuscitation Status: Resuscitation Status DNR:Do Not Resuscitate MAR Reviewed: Yes Vital Signs & Weight: Vital Signs (12 hours) Temp Pulse Resp BP Pulse Ox 12/06/17 11:38 98.5 F 83 18 136/104 H 91 L 12/06/17 08:45 98.6 F 87 18 131/60 93 L 12/06/17 08:00 98.6 F 87 18 98 12/06/17 07:44 96 12/06/17 04:00 98.2 F 69 20 143/63 H 94 L Weight Admit Weight 121 lb 8 oz Weight 111 lb 8 oz I&O: 12/05/17 12/06/17 12/07/17 06:59 06:59 06:59 Intake Total 1720 1310 Output Total 850 Balance 1720 460 Result Diagrams: 12/04/17 05:17 12/04/17 05:17 Additional Labs: Accuchecks 12/06/17 12/05/17 12/05/17 05:24 20:53 16:53 POC Glucose 108 239 H 127 H 12/05/17 11:42 POC Glucose 239 H Phys Exam - Physical Examination HEENT: PERRLA Respiratory: no wheezing, no rales, no rhonchi, clear to auscultation bilateral Cardiovascular: RRR, no significant murmur, no rub Gastrointestinal: soft, non-tender, no distention, positive bowel sounds Musculoskeletal: no edema mild erythema in the right lower extremity Dx/Plan (1) Aortic stenosis, severe Code(s): I35.0 - NONRHEUMATIC AORTIC (VALVE) STENOSIS Status: Acute (2) Cellulitis of left leg Code(s): L03.116 - CELLULITIS OF LEFT LOWER LIMB Status: Acute (3) Acute on chronic diastolic heart failure Code(s): I50.33 - ACUTE ON CHRONIC DIASTOLIC (CONGESTIVE) HEART FAILURE Status : Acute (4) Diabetes mellitus type 2 in nonobese Code(s): E11.9 - TYPE 2 DIABETES MELLITUS WITHOUT COMPLICATIONS Status: Chronic (5) Hypertension Code(s): I10 - ESSENTIAL (PRIMARY) HYPERTENSION Status: Chronic (6) Hypothyroidism Code(s): E03.9 - HYPOTHYROIDISM, UNSPECIFIED Status: Chronic (7) CVA (cerebral vascular accident) Code(s): I63.9 - CEREBRAL INFARCTION, UNSPECIFIED Status: Chronic (8) Chronic kidney disease, stage 3 (moderate) Code(s): N18.3 - CHRONIC KIDNEY DISEASE, STAGE 3 (MODERATE) Status: Acute (9) Pulmonary hypertension Code(s): I27.20 - PULMONARY HYPERTENSION, UNSPECIFIED Status: Acute - Plan * Acute on chronic diastolic heart failure- compensated * Cellulitis- much improved * - severe- discussed with family yesterday- will not pursue aggressive treatment * Stable for discharge back to the [facility].
[2017-12-06] MEDS: HumaLOG 300 UNITS/3 ML VIAL SC PRN (12:10)
[2017-12-06 16:48] VITALS: BP 128/60; TEMP 98.9
--- NOTE | 2017-12-06 17:40 | PDOC.CTH ---
Cardiology Progress Note - Subjective No new issues. No CP or SOB. - Objective Vital Signs Temp Pulse Resp BP Pulse Ox 12/06/17 16:46 98.9 F 83 16 128/60 91 L 12/06/17 11:38 98.5 F 83 18 136/104 H 91 L 12/06/17 08:45 98.6 F 87 18 131/60 93 L 12/06/17 08:00 98.6 F 87 18 98 12/06/17 07:44 96 Admit Weight 121 lb 8 oz Weight 111 lb 8 oz 12/05/17 12/06/17 12/07/17 06:59 06:59 06:59 Intake Total 1720 1310 Output Total 850 Balance 1720 460 - Physical Examination General/Neuro: NAD Neck: no JVD present Lungs: CTA, unlabored respirations Heart: other: (irreg) Abdomen: NT/ND - Telemetry Telemetry Rhythm: Afib HR 70's. - Labs Result Diagrams: 12/04/17 05:17 12/04/17 05:17 Troponin/CKMB CK-MB (CK-2) 2.4 ng/mL (0-6.6) 12/01/17 21:18 Troponin I 0.041 ng/mL (< 0.028) H 12/01/17 21:18 - Assessment/Plan 1. Afib, rate controlled. 2. Cellulitis PLAN: - Continue same regimen. - No new recs.
--- NOTE | 2017-12-06 22:51 | DIS ---
PRIMARY CARE PHYSICIAN: James Acevedo M.D. DATE OF ADMISSION: 12/01/2017 DATE OF DISCHARGE: 12/06/2017 DISCHARGE DISPOSITION: Home. DISCHARGE DISPOSITION: [facility] with hospice. DISCHARGE DIAGNOSES: 1. Cellulitis of the right lower extremity. 2. Acute on chronic diastolic heart failure. 3. Critical aortic stenosis. 4. Dementia. 5. History of previous cerebrovascular accident with right-sided weakness. 6. Permanent atrial fibrillation. DISCHARGE MEDICATIONS: Include valsartan 160 mg daily, Zofran 8 mg q.6 hours as needed, multivitamin s once a day, metformin 1000 mg twice daily, Meloxicam 7.5 mg daily, magnesium oxide 400 mg twice a d ay, levothyroxine 50 mcg daily, guaifenesin 800 mg daily, glimepiride 3 mg twice daily, Lasix 40 mg t wice a day, digoxin 0.125 mg daily, Lipitor 10 mg daily, Keflex 500 mg twice daily for 7 days, amlodi pine 5 mg daily, and Tylenol 325 mg as needed. Please note that the patient is not on anticoagulatio n for atrial fibrillation due to patient preference. PROCEDURES DONE DURING ADMISSION: The patient had an echocardiogram, which showed an ejection fracti on of 55% to 60%. There was moderate concentric left ventricular hypertrophy. There was impaired re laxation compatible with diastolic dysfunction and there was very severe aortic stenosis present and the aortic valve area was 0.31 centimeter square. CODE STATUS: DNR. ALLERGIES: No known drug allergies. HOSPITAL COURSE: Ms. Denise is a pleasant 87-year-old female, who presented to the emergency room wit h increasing lower extremity edema. She was also noted to have some redness in the right lower extre mity, which had resulted from a skin tear. She was treated for cellulitis in the right lower extremi ty as well as acute on chronic diastolic heart failure. There was some concern because her proBNP co ntinued to go up despite treating her with Lasix and diuresing her, and for this reason, an echocardi ogram was obtained and it was found that she has critical aortic stenosis in addition to her diastoli c dysfunction. For this reason, her pillow filler, was consulted and there was some contemplation abo ut considering evaluation for aortic valve repair; however, due to the patient's advanced dementia an d multiple other medical conditions. It was felt that the decision was made not to pursue aggressive treatment. Due to the severity of her aortic stenosis, her life expectancy is likely less than a ye ar and most definite and possibly even less than 6 months as her valve area was estimated at 0.39%. Her [id number] states that she may have been symptomatic in that she had a syncopal episode a fe w months prior. Given this information, she would be a candidate for hospice given the likelihood of her reduced longevity. Therefore, she will be discharged back to the [facility] with hospice.
== END 2017-12-06 19:35 | DRG 291 ==
LOC: ERS 12:24 → ERHOLD 15:59 → 2NO 18:38
PROVIDERS: ADMIT Internal Medicine; ATTEND Internal Medicine
DX: I13.0 Hypertensive heart and chronic kidney disease with heart failure and stage 1 through stage 4 chronic kidney disease, or unspecified chronic kidney disease (principal); L89.513 Pressure ulcer of right ankle, stage 3; I50.23 Acute on chronic systolic (congestive) heart failure; L03.115 Cellulitis of right lower limb; I69.351 Hemiplegia and hemiparesis following cerebral infarction affecting right dominant side; N18.3 Chronic kidney disease, stage 3 (moderate); F03.90 Unspecified dementia, unspecified severity, without behavioral disturbance, psychotic disturbance, mood disturbance, and anxiety; I35.0 Nonrheumatic aortic (valve) stenosis; I48.2 Chronic atrial fibrillation; E03.9 Hypothyroidism, unspecified; E78.5 Hyperlipidemia, unspecified; J44.9 Chronic obstructive pulmonary disease, unspecified; E11.9 Type 2 diabetes mellitus without complications; D64.9 Anemia, unspecified; Z66 Do not resuscitate; Z79.899 Other long term (current) drug therapy; Z79.1 Long term (current) use of non-steroidal anti-inflammatories (NSAID); F41.9 Anxiety disorder, unspecified; F32.9 Major depressive disorder, single episode, unspecified; I27.20 Pulmonary hypertension, unspecified
CPT/HCPCS: 36415; 36416; 71045; 80048; 80053; 80162; 80202; 81001; 83735; 83880; 84443; 84550; 85025; 87324; 87449; 90471; 90670; 93306; 93798; G0009; G8978-GP-CJ; G8979-GP-CI; G8987-GO-CL; G8988-GO-CJ; J0696; J1650; J1940; J3370; J7050